=== PATIENT | male | born 1975 | race Two or more races ===

== ENCOUNTER 2022-01-13 21:58 | Inpatient (IN) ==
[2022-01-13 22:33] LABS: Basophils # (auto) 0.02 K/uL (0-0.2); Basophils % (auto) 0.4 %; Eosinophils # (auto) 0.11 K/uL (0-0.5); Hematocrit (blood only) 40.6 % (42-52); Hemoglobin 13.9 g/dL (14.0-18.0); Immature Granulocytes # (auto) 0.01 K/uL (0.00-0.02); Immature Granulocytes % (auto) 0.2 %; Lymphocytes # (auto) 1.57 K/uL (1.2-3.4); Mean Corpuscular Hemoglobin 27.9 pg (25-34); Mean Corpuscular Hgb Conc 34.2 g/dL (32-36); Mean Corpuscular Volume 81.5 fL (80-100); Mean Platelet Volume 9.6 fL (7.4-10.4); Monocytes # (auto) 0.49 K/uL (0.11-0.59); Neutrophils # (auto) 3.22 K/uL (1.4-6.5); Neutrophils % (auto) 59.4 %; Platelet Count 195 K/uL (130-400); RDW Standard Deviation 38.9 fL (36.4-46.3); Red Blood Count 4.98 M/uL (4.7-6.1); White Blood Count 5.42 K/uL (4.8-10.8)
[2022-01-13 22:45] LABS: Partial Thromboplastin Time 27.6 Seconds (21.0-31.0)
[2022-01-13 23:10] LABS: Albumin Globulin Ratio 1.5 (0.9-2); Albumin Level 4.2 gm/dl (3.4-5.0); BUN Creatinine Ratio 14.1 (10-20); Bilirubin,Total 0.7 mg/dl (0.2-1.0); Calcium 9.2 mg/dl (8.5-10.1); Creatinine Clr Calc Pharmacy 115.3 ml/min; Est GFR (Non-African American) 100.1 ml/min; Globulin 2.8 gm/dl (2.5-4.0); Potassium 3.4 mmol/L (3.5-5.1)
[2022-01-13] MEDS ORDERED: NITROGLYCERIN 2% OINTMENT 30GM TUBE EXT ONE (23:29)
[2022-01-13] MEDS ORDERED: ASPIRIN CHEW 324 MG PO STA (23:29)
[2022-01-13] MEDS ORDERED: SODIUM CHLORIDE 0.9% 1000ML 1,000 ML IV SCH (23:30)
[2022-01-13 23:46] LABS: D Dimer 210 ug/L FEU (0-500)
[2022-01-14] MEDS ORDERED: POTASSIUM CHLORIDE CRTAB 20 MEQ TABCR PO STA (01:29)
[2022-01-14] MEDS ORDERED: ONDANSETRON INJ 2 MG/ML 2 ML VIAL IV PRN (02:14)
[2022-01-14] MEDS ORDERED: POLYETHYLENE (MIRALAX) 17 GM PACK PO PRN (02:14)
[2022-01-14] MEDS ORDERED: ACETAMINOPHEN 325 MG TAB PO PRN (02:14)
[2022-01-14] MEDS ORDERED: SODIUM CHLORIDE 0.9% 1000ML 1,000 ML IV SCH (02:14)
[2022-01-14] MEDS ORDERED: NITROGLYCERIN SL 0.4 MG/TAB TAB SL PRN ×2 (02:14→09:52)
[2022-01-14] MEDS ORDERED: METOPROLOL TARTRATE 1 MG/ML VIAL IV PRN (02:14)
[2022-01-14] MEDS ORDERED: HEPARIN SOD (PORCINE) 1000 UNIT/ML IV ONE (02:41)
[2022-01-14] MEDS ORDERED: Heparin IV Adult Wt-Based Standard WITH Bolus Protocol IV SCH (02:44)
[2022-01-14] MEDS: HEPARIN SODIUM/DEXTROSE 25,000 UNITS/500 ML BAG IV SCH (03:45)
[2022-01-14] MEDS ORDERED: HEPARIN IV BOLUS 6,000 UNITS in SYRINGE 0 ML IV ONE ×2 (04:00→15:30)
--- NOTE | 2022-01-14 04:58 | Emergency Department Note ---
History of Present Illness General Chief complaint: Chest Pain Stated complaint: CHEST PAIN, L ARM PAIN Time Seen by Provider: 01/13/22 23:25 History of Present Illness Maximum Pain Intensity: 3 This is a 46-year-old male presenting to the emergency department for evaluation of intermittent chest pain and left arm pain today. The patient considers himself usually healthy taking only medication for blood pressure. He was in [facility] earlier today and took a flight back home to [facility]. He is having some worsening pain and shortness of breath with walking. He has not had symptoms like this in the past. The patient has not taken anything [id number] for discomfort and rates his pain a 3/10. He does describe it as a heaviness that does not radiate from the midsternal area. Home Medications Medication Instructions Recorded Confirmed Type losartan 100 mg tablet 100 mg PO DAILY 01/13/22 01/13/22 History amlodipine 5 mg tablet 5 mg PO DAILY 01/14/22 01/14/22 History Allergies Allergy/AdvReac Type Severity Reaction Status Date / Time No Known Allergies Allergy Verified 01/13/22 23:38 Past Med/Surg History Medical History Hypertension Surgical History No significant past surgical history Social History Smoking Status: Never smoker Hx Alcohol Use: No Hx Substance Use: No Preferred Language: Andorran Communication Ability: Effective Answering Service Operator Required: No Beliefs That Will Affect Care: None Current Living Situation: Spouse and Family Feels Safe at Home: Yes Safety Concerns: Feels Safe At This Time Assistive Devices: None Review of Systems A total of 10 systems reviewed and were otherwise negative Physical Exam Vital Signs Vital Signs - 24 hr 01/13/22 22:04 01/13/22 23:32 01/14/22 00:00 Temperature 36.4 C L Temperature Source Temporal Artery Scan Pulse Rate 84 58 L 55 L Pulse Rate from SpO2 Sensor 58 L Respiratory Rate 18 22 21 Blood Pressure 174/106 H 157/92 H Blood Pressure Mean 128 113 Pulse Oximetry 95 99 Sepsis Recent Fever Within 48 Hours No Sepsis New/Unexplained Change in Mental Status N/A Sepsis Action Taken by Nursing No Action Required 01/14/22 00:30 01/14/22 01:00 Temperature Temperature Source Pulse Rate 47 L 53 L Pulse Rate from SpO2 Sensor 47 L 54 L Respiratory Rate 12 13 Blood Pressure 126/84 Blood Pressure Mean 98 Pulse Oximetry 96 94 Sepsis Recent Fever Within 48 Hours Sepsis New/Unexplained Change in Mental Status Sepsis Action Taken by Nursing VITALS: Vitals are noted on the nurse's note and reviewed by myself. Vital signs stable. GENERAL: Well-developed, well-nourished, male, who is in no acute distress and resting comfortably. Patient is cooperative with the examination. HEAD: Normocephalic atraumatic. EARS: External ear normal. External auditory canals clear, tympanic membranes pearly bynum without erythema or effusion bilaterally. EYES: Pupils equal round and reactive to light and accommodation. Conjunctivae without injection, sclerae without icterus. Extraocular movements intact. NOSE: Patent, turbinates without inflammation or discharge. MOUTH: Mucous membranes moist. Tonsils are not enlarged. Pharynx without erythema, blood, or exudate. Uvula midline. Airway patent. NECK: Supple without nuchal rigidity. No lymphadenopathy. No thyromegaly. Cervical spine is nontender. HEART: Regular rate and rhythm without murmurs gallops or rubs. LUNGS: Clear to auscultation bilaterally without wheezes, rales or rhonchi. No retractions or accessory muscle use. ABDOMEN: Positive normal bowel sounds x 4. Soft, nontender, without masses or organomegaly. No guarding or rebound tenderness. MUSCULOSKELETAL: No muscle atrophy, erythema, or edema noted. Full range of motion in all extremities Course Administered Medications Sodium Chloride (Nss 1000ml) 1,000 mls @ 75 mls/hr IV .[id number] [facility] Stop: 01/14/22 15:33 Last Admin: 01/14/22 03:25 Dose: 75 mls/hr Documented by: [id number] Heparin Sodium/Dextrose (Heparin Sodium/Dextrose) 25,000 units in 500 mls @ 29 mls/hr IV .[id number] [facility]; Protocol Stop: 02/13/22 02:44 Last Admin: 01/14/22 03:45 Dose: 1,450 units/hr, 29 mls/hr Documented by: [id number] Cosigned by: [id number] Discontinued Medications Aspirin (Aspirin Chew 324 Mg) 324 mg PO NOW STA Stop: 01/13/22 23:30 Last Admin: 01/13/22 23:38 Dose: 324 mg Documented by: [id number] Sodium Chloride (Nss 1000ml) 1,000 mls @ 999 mls/hr IV .[id number] [facility] Stop: 01/14/22 00:30 Last Infusion: 01/14/22 00:42 Dose: 0 mls/hr Documented by: [id number] Admin: 01/13/22 23:38 Dose: 999 mls/hr Documented by: [id number] Heparin Sodium (Porcine) 6,000 (units/ Syringe) 6 mls @ 10 mls/min IV 0400 ONE Stop: 01/14/22 04:01 Last Admin: 01/14/22 04:02 Dose: 10 mls/min Documented by: [id number] Cosigned by: [id number] Nitroglycerin (Nitroglycerin 2% Ointment 30gm Tube) 1 inch EXT NOW ONE Stop: 01/13/22 23:30 Last Admin: 01/13/22 23:38 Dose: 1 inch Documented by: [id number] Potassium Chloride (Potassium Chloride Crtab 20 Meq Tabcr) 40 meq PO NOW STA Stop: 01/14/22 01:30 Last Admin: 01/14/22 03:24 Dose: 40 meq Documented by: [id number] Medical Decision Making Differential Diagnosis Differential diagnosis includes, but is not limited to: Myocardial infarction, dysrhythmia, pericarditis, pneumothorax, aortic aneurysm/dissection, DVT/PE, anxiety, GERD, PUD, electrolyte imbalance, thyroid disorder, pneumonia, bronchitis, pancreatitis, and others Laboratory Data Result diagrams: 01/13/22 22:20 01/13/22 22:20 Lab Results 01/13/22 01/13/22 01/13/22 Range/Units 22:20 22:20 22:20 WBC 5.42 (4.8-10.8) K/uL RBC 4.98 (4.7-6.1) M/uL Hgb 13.9 L (14.0-18.0) g/dL Hct 40.6 L (42-52) % MCV 81.5 (80-100) fL MCH 27.9 (25-34) pg MCHC 34.2 (32-36) g/dL RDW Std Deviation 38.9 (36.4-46.3) fL RDW Coeff of Storm 13.0 (11.5-14.5) % Plt Count 195 (130-400) K/uL MPV 9.6 (7.4-10.4) fL Immature Gran % (Auto) 0.2 % Neut % (Auto) 59.4 % Lymph % (Auto) 29.0 % [place] % (Auto) 9.0 % Eos % (Auto) 2.0 % Baso % (Auto) 0.4 % Neut # (Auto) 3.22 (1.4-6.5) K/uL Lymph # (Auto) 1.57 (1.2-3.4) K/uL [place] # (Auto) 0.49 (0.11-0.59) K/uL Eos # (Auto) 0.11 (0-0.5) K/uL Baso # (Auto) 0.02 (0-0.2) K/uL Immature Gran # (Auto) 0.01 (0.00-0.02) K/uL PT 11.0 (9.0-12.0) Seconds INR 1.0 (0.9-1.1) APTT 27.6 (21.0-31.0) Seconds PTT Ratio 1.0 D-Dimer (0-500) ug/L FEU Sodium (136-145) mmol/L Potassium (3.5-5.1) mmol/L Chloride (98-107) mmol/L Carbon Dioxide (21-32) mmol/L Anion Gap (3-11) BUN (6-23) mg/dl Creatinine (0.6-1.4) mg/dl Est Cr Clr Drug Dosing ml/min Est GFR ( Amer) ml/min Est GFR (Non-Af Amer) ml/min BUN/Creatinine Ratio (10-20) Glucose (70-99(Fasting)) mg/dl Calcium (8.5-10.1) mg/dl Total Bilirubin (0.2-1.0) mg/dl AST (13-39) U/L ALT (7-52) U/L Alkaline Phosphatase (34-104) U/L Troponin I High Sens 134.1 H* (0-20) pg/ml Total Protein (6.0-8.3) gm/dl Albumin (3.4-5.0) gm/dl Globulin (2.5-4.0) gm/dl Albumin/Globulin Ratio (0.9-2) SARS-CoV-2, RNA, NAAT (NEGATIVE) 01/13/22 01/13/22 01/14/22 Range/Units 22:20 22:20 00:12 WBC (4.8-10.8) K/uL RBC (4.7-6.1) M/uL Hgb (14.0-18.0) g/dL Hct (42-52) % MCV (80-100) fL MCH (25-34) pg MCHC (32-36) g/dL RDW Std Deviation (36.4-46.3) fL RDW Coeff of Storm (11.5-14.5) % Plt Count (130-400) K/uL MPV (7.4-10.4) fL Immature Gran % (Auto) % Neut % (Auto) % Lymph % (Auto) % [place] % (Auto) % Eos % (Auto) % Baso % (Auto) % Neut # (Auto) (1.4-6.5) K/uL Lymph # (Auto) (1.2-3.4) K/uL [place] # (Auto) (0.11-0.59) K/uL Eos # (Auto) (0-0.5) K/uL Baso # (Auto) (0-0.2) K/uL Immature Gran # (Auto) (0.00-0.02) K/uL PT (9.0-12.0) Seconds INR (0.9-1.1) APTT (21.0-31.0) Seconds PTT Ratio D-Dimer 210 (0-500) ug/L FEU Sodium 139 (136-145) mmol/L Potassium 3.4 L (3.5-5.1) mmol/L Chloride 104 (98-107) mmol/L Carbon Dioxide 28 (21-32) mmol/L Anion Gap 7 (3-11) BUN 13 (6-23) mg/dl Creatinine 0.92 (0.6-1.4) mg/dl Est Cr Clr Drug Dosing 115.3 ml/min Est GFR ( Amer) 116.0 ml/min Est GFR (Non-Af Amer) 100.1 ml/min BUN/Creatinine Ratio 14.1 (10-20) Glucose 91 (70-99(Fasting)) mg/dl Calcium 9.2 (8.5-10.1) mg/dl Total Bilirubin 0.7 (0.2-1.0) mg/dl AST 17 (13-39) U/L ALT 16 (7-52) U/L Alkaline Phosphatase 66 (34-104) U/L Troponin I High Sens (0-20) pg/ml Total Protein 7.0 (6.0-8.3) gm/dl Albumin 4.2 (3.4-5.0) gm/dl Globulin 2.8 (2.5-4.0) gm/dl Albumin/Globulin Ratio 1.5 (0.9-2) SARS-CoV-2, RNA, NAAT NEGATIVE (NEGATIVE) 01/14/22 Range/Units 01:20 WBC (4.8-10.8) K/uL RBC (4.7-6.1) M/uL Hgb (14.0-18.0) g/dL Hct (42-52) % MCV (80-100) fL MCH (25-34) pg MCHC (32-36) g/dL RDW Std Deviation (36.4-46.3) fL RDW Coeff of Storm (11.5-14.5) % Plt Count (130-400) K/uL MPV (7.4-10.4) fL Immature Gran % (Auto) % Neut % (Auto) % Lymph % (Auto) % [place] % (Auto) % Eos % (Auto) % Baso % (Auto) % Neut # (Auto) (1.4-6.5) K/uL Lymph # (Auto) (1.2-3.4) K/uL [place] # (Auto) (0.11-0.59) K/uL Eos # (Auto) (0-0.5) K/uL Baso # (Auto) (0-0.2) K/uL Immature Gran # (Auto) (0.00-0.02) K/uL PT (9.0-12.0) Seconds INR (0.9-1.1) APTT (21.0-31.0) Seconds PTT Ratio D-Dimer (0-500) ug/L FEU Sodium (136-145) mmol/L Potassium (3.5-5.1) mmol/L Chloride (98-107) mmol/L Carbon Dioxide (21-32) mmol/L Anion Gap (3-11) BUN (6-23) mg/dl Creatinine (0.6-1.4) mg/dl Est Cr Clr Drug Dosing ml/min Est GFR ( Amer) ml/min Est GFR (Non-Af Amer) ml/min BUN/Creatinine Ratio (10-20) Glucose (70-99(Fasting)) mg/dl Calcium (8.5-10.1) mg/dl Total Bilirubin (0.2-1.0) mg/dl AST (13-39) U/L ALT (7-52) U/L Alkaline Phosphatase (34-104) U/L Troponin I High Sens 157.8 H* (0-20) pg/ml Total Protein (6.0-8.3) gm/dl Albumin (3.4-5.0) gm/dl Globulin (2.5-4.0) gm/dl Albumin/Globulin Ratio (0.9-2) SARS-CoV-2, RNA, NAAT (NEGATIVE) ECG Data Attestation: I personally reviewed and interpreted this ECG as follows: Indication: + chest pain Additional Comments: Sinus bradycardia @[address] elevation Incomplete right bundle branch block No previous ECGs available MDM Narrative Physical exam and history were performed. Nursing notes, EMR, and Medication List were personally reviewed. Patient appears to have chest pain symptoms that seem to worsen with exertion today. The patient presents to the ER during a period of high ER volume and acuity. Nursing protocol orders have been initiated and IV access has been established and labs obtained. The patient was given aspirin and Nitropaste. The patient's blood work is as above and was reviewed. He does not have a significantly elevated white blood cell count, gross anemia, bandemia, or significant electrolyte imbalance. His high sensitive troponin is POSITIVE at 120. EKG was performed and does not show acute ST elevation. An order was placed for continuous cardiac monitoring. The monitor shows a rate of 62 with normal sinus rhythm. Overall the patient does not appear well for discharge home. The case was discussed with the on-call [facility] who will initiate heparin. Please see their dictation for further patient course, plan, and disposition. The chart was completed utilizing [employer] Speech Voice Recognition Software. Grammatical errors, random word insertions, pronoun errors, and incomplete s entences are an occasional consequence of this system due to software limitations, ambient noise, and hardware issues. Any formal questions or concerns about the content, text, or information contained within the body of this dictation should be directly addressed to the provider for clarification. . Impression & Plan Atypical chest pain, Elevated troponin Discharge Plan Visit Data Chief Complaint: Chest Pain Stated Complaint: CHEST PAIN, L ARM PAIN ED Provider: Cassandra York ED Midlevel Provider: Clint Chance Discharge Problem: Atypical chest pain, Elevated troponin Patient Disposition: Being Evaluated by Hospitalist
[2022-01-14] MEDS: NITROGLYCERIN 2% OINTMENT 30GM TUBE EXT SCH ×4 (05:52→23:16)
--- NOTE | 2022-01-14 06:33 | History and Physical Report ---
DATE OF ADMISSION: 01/14/2022. CHIEF COMPLAINT: Chest pain. HISTORY OF PRESENT ILLNESS: A 46-year-old male with past medical history significant for prediabetes, history of hypokalemia, hypertension, history of low HDL, presents with chest pain. The patient says he flew from [place] yesterday morning. Since then, he is having chest discomfort in the middle of the chest, no radiation. Pressure, sharp kind of pain and the pain is more when he is ambulating 6/10 in ; when he is resting, it is 3/10 in severity. Denies any other complaints. No shortness of breath, no nausea, no headache, no dizziness, no sweating. Currently resting comfortably. The patient was given nitros and aspirin in the ER. Currently, pain is resolved. Denies any blurred visions, no earache, no runny nose, no sore throat, no cough, no fevers. No difficulty swallowing. No abdominal pain. Normal bowel and bladder movements. Before this episode he was ambulating fine without any complaints. ALLERGIES: No known drug allergies. PAST MEDICAL HISTORY: As mentioned above. PAST SURGICAL HISTORY: Knee arthroscopy on the left side. MEDICATIONS: Amlodipine 5 mg p.o. daily, losartan 100 mg p.o. daily. FAMILY HISTORY: Significant for father has prediabetes. SOCIAL HISTORY: , no smoking, no alcohol, no drug use. REVIEW OF SYSTEMS: As per HPI. Rest of review of systems is negative. PHYSICAL EXAMINATION: GENERAL: The patient is of moderate build, not in acute distress. VITAL SIGNS: Temperature 36.4, pulse 84, respiratory rate 18, blood pressure 174/106, oxygen 95% on room air. HEENT: Pupils equal, round and reactive to light. Oral mucosa moist. NECK: No JVD, no neck masses. CARDIOVASCULAR: S1 and S2 heard. Regular rate and rhythm. No murmur, no gallop. RESPIRATORY SYSTEM: Normal AP diameter. No accessory muscle use. No wheezing, no crackles. ABDOMEN: Soft, bowel sounds present, nontender, no distention. CENTRAL NERVOUS SYSTEM: Cranial nerves II-XII grossly intact, nonfocal. EXTREMITIES: No edema, no erythema. LABORATORY DATA: WBC 5.4, hemoglobin 13.9, hematocrit 40.6, platelets 195. PT 11, INR 1, APTT 27.6. D-dimer 210. Sodium 139, potassium 3.4, chloride 104, bicarb 28, BUN 13, creatinine 0.9, serum glucose 91, calcium 9.2, total bilirubin 0.7, AST 17, ALT 16, alkaline phosphatase 66. Troponin I high sensitivity 134. SARS-CoV-2 rapid test negative. IMAGING DATA: Chest x-ray, no acute findings. EKG: Sinus bradycardia at a rate of 53, incomplete right bundle-branch block, no acute ST changes seen. ASSESSMENT AND PLAN: This is a 46-year-old male who presents with chest pain. 1. Chest pain: Pain is more on exertion. History of hypertension, prediabetes, and age are risk factors. His troponin high sensitivity is elevated at 134, possible non-ST elevated [place]. Received aspirin and nitropatch in ER.. Continue with aspirin. Follow lipid profile. Follow the serial enzymes.Started on IV heparin. Echo, n.p.o., gentle fluids, and consult cardiology in the a.m. Closely monitor in the tele floor. 2. Hypertension: Continues his amlodipine and losartan. and IV Lopressor p.r.n. If gets elevated will start on nitro paste Will monitor the blood pressure. 3. Deep venous thrombosis prophylaxis: IV heparin. 4. Prediabetes: Follow HbA1c levels. DISPOSITION: Closely monitor in tele floor. Level 1 full code. Expect to discharge home and follow with family doctor. Job ID: [id number] [facility]
--- NOTE | 2022-01-14 08:01 | XRay Report ---
XR chest 1V portable HISTORY: Shortness of breath. Atypical Chest Pain COMPARISON: None. FINDINGS: The lungs are clear. Cardiac silhouette is normal in size. No pleural effusions. No pneumot horax. IMPRESSION: No acute process. ACT 112: Negative or not required by law. Electronically signed by: Sivakumar Morales M.D. 01/14/2022 7:59 AM
[2022-01-14 08:24] LABS: Basophils # (auto) 0.01 K/uL (0-0.2); Basophils % (auto) 0.1 %; Eosinophils # (auto) 0.08 K/uL (0-0.5); Eosinophils % (auto) 1.1 %; Hematocrit (blood only) 38.5 % (42-52); Hemoglobin 12.9 g/dL (14.0-18.0); Immature Granulocytes # (auto) 0.01 K/uL (0.00-0.02); Immature Granulocytes % (auto) 0.1 %; Lymphocytes # (auto) 1.11 K/uL (1.2-3.4); Lymphocytes % (auto) 15.9 %; Mean Corpuscular Hemoglobin 27.5 pg (25-34); Mean Corpuscular Hgb Conc 33.5 g/dL (32-36); Mean Corpuscular Volume 82.1 fL (80-100); Mean Platelet Volume 9.4 fL (7.4-10.4); Monocytes # (auto) 0.35 K/uL (0.11-0.59); Neutrophils # (auto) 5.44 K/uL (1.4-6.5); Neutrophils % (auto) 77.8 %; Platelet Count 185 K/uL (130-400); RDW Coefficient of Variation 13.1 % (11.5-14.5); RDW Standard Deviation 39.6 fL (36.4-46.3); Red Blood Count 4.69 M/uL (4.7-6.1)
--- NOTE | 2022-01-14 08:29 | Cardiology Consultation ---
Date of Consultation January 14, 2022 Assessment & Plan (1) Non-ST elevation (NSTEMI) myocardial infarction: (2) Hypertension: 46-year-old patient presents to the ER with chest discomfort and elevated troponin suggestive of NSTEMI. IV anticoagulation with heparin appropriately initiated overnight. Currently pain-free. Recommend coronary angiography with left heart catheterization for further evaluation. Risk, benefits, terms discussed. Patient agreeable. Add high intensity statin therapy. Patient is a drug-eluting stent candidate. History of Present Illness Reason for Consultation: NSTEMi Requesting Physician: Gayathri Clarke Attending Physician: Patrica Hall MD History of Present Illness 86-year-old patient presented emergency department chest discomfort. Discomfort began yesterday at rest described as a sharp pain. Discomfort exacerbated with exertion and relieved with rest. He came to the ER for further evaluation. Initial HS troponin mildly elevated with a increase on 2-hour follow-up. Currently patient is pain-free. Denies any history of coronary disease, congestive heart failure, or rheumatic fever as a child. Cardiovascular risk factors include hypertension and prediabetes. Treated with aspirin and topical nitrates in the ER. Preliminary review of 2D transthoracic echocardiogram demonstrates no regional wall motion abnormalities. Allergies Allergy/AdvReac Type Severity Reaction Status Date / Time No Known Allergies Allergy Verified 01/13/22 23:38 Home Medications Medication Instructions Recorded Confirmed Type losartan 100 mg tablet 100 mg PO DAILY 01/13/22 01/13/22 History amlodipine 5 mg tablet 5 mg PO DAILY 01/14/22 01/14/22 History Patient History Medical History Hypertension Surgical History No significant past surgical history Social History Smoking Status: Never smoker Hx Alcohol Use: No Hx Substance Use: No Preferred Language: Afghan Communication Ability: Effective Manager Sap Required: No Beliefs That Will Affect Care: None Current Living Situation: Spouse and Family Feels Safe at Home: Yes Safety Concerns: Feels Safe At This Time Assistive Devices: None Review of Systems Review of Systems: All systems reviewed & are unremarkable except as noted in Subjective Physical Exam Constitutional: well developed and well nourished; no acute distress Respiratory: normal respiratory effort; no respiratory distress, no labored breathing and no retractions Cardiovascular: Rate/Rhythm: regular rate and regular rhythm Heart Sounds: normal S1 and normal S2; no murmur Vessels: femoral pulses present and radial pulses present; no JVD and no carotid bruit Extremities: no edema Gastrointestinal (Abdomen): Inspection/Auscultation: abdomen normal to inspection and normal bowel sounds; abdomen not distended Neurologic: CN's II-XI intact bilaterally and moves all extremities; no focal motor deficits Psychiatric: A+Ox3, euthymic affect Results & Data ([facility]) Vital Signs (Past 12 Hours) Vital Signs Temp Pulse Pulse Resp BP BP BP 01/14/22 07:50 66 01/14/22 07:03 36.8 C 62 18 127/78 01/14/22 05:38 73 128/75 01/14/22 04:23 62 01/14/22 03:55 36.5 C 58 L 18 128/78 01/14/22 02:20 36.5 C 69 20 145/82 H 01/14/22 01:30 01/14/22 01:00 53 L 13 126/84 01/14/22 00:30 47 L 12 01/14/22 00:00 55 L 21 157/92 H 01/13/22 23:32 58 L 22 01/13/22 22:04 36.4 C L 84 18 174/106 H Pulse Ox 01/14/22 07:50 01/14/22 07:03 95 01/14/22 05:38 01/14/22 04:23 01/14/22 03:55 94 01/14/22 02:20 95 01/14/22 01:30 97 01/14/22 01:00 94 01/14/22 00:30 96 01/14/22 00:00 01/13/22 23:32 99 01/13/22 22:04 95
--- NOTE | 2022-01-14 08:36 | Pre Anesthesia Assessment ---
Date of Service January 14, 2022 Pre Sedation Assessment Vital Signs Temp Pulse Pulse Resp BP BP BP 01/14/22 07:50 66 01/14/22 07:03 36.8 C 62 18 127/78 01/14/22 05:38 73 128/75 01/14/22 04:23 62 01/14/22 03:55 36.5 C 58 L 18 128/78 01/14/22 02:20 36.5 C 69 20 145/82 H 01/14/22 01:30 01/14/22 01:00 53 L 13 126/84 01/14/22 00:30 47 L 12 01/14/22 00:00 55 L 21 157/92 H 01/13/22 23:32 58 L 22 01/13/22 22:04 36.4 C L 84 18 174/106 H Pulse Ox 01/14/22 07:50 01/14/22 07:03 95 01/14/22 05:38 01/14/22 04:23 01/14/22 03:55 94 01/14/22 02:20 95 01/14/22 01:30 97 01/14/22 01:00 94 01/14/22 00:30 96 01/14/22 00:00 01/13/22 23:32 99 01/13/22 22:04 95 Cardiovascular RRR, no murmur, no edema + femoral pulses present and + radial pulses present; no JVD and no carotid bruit no edema Respiratory normal respiratory effort, lungs clear to auscultation Pre-Sedation Airway Assessment Smoking Status: Never smoker ASA: ASA4 NPO Status Date of Last Intake of Fluids: 01/13/22 Date of Last Intake of Solid Food: 01/13/22 Procedure Planning Contraindications for Sedation: none Current Medications Reviewed: Yes Notes The planned sedation has been discussed with the patient. Informed Consent was obtained. I have identified the patient, determined the appropriateness of sedation and have assessed the patient immediately prior to the procedure. All medicine(s) and interventions are by my order.
[2022-01-14] MEDS ORDERED: HEPARIN (PORCINE) 1000 UNIT/ML 10 ML (CATH LAB USE ONLY) ONE (09:03)
[2022-01-14] MEDS ORDERED: MIDAZOLAM HCL 1 MG/ML 2ML VIAL ONE (09:03)
[2022-01-14] MEDS ORDERED: fentaNYL citrate 100 MCG/2 ML VIAL ONE (09:03)
[2022-01-14] MEDS ORDERED: niCARdipine HCL INJ 2.5 MG/ML 10 ML AMP ONE (09:03)
[2022-01-14] MEDS ORDERED: NITROGLYCERIN/D5W 100MCG/ML 20ML SYR ONE (09:04)
[2022-01-14 09:14] LABS: BUN Creatinine Ratio 11.1 (10-20); Calcium 8.6 mg/dl (8.5-10.1); Chol HDL Ratio 3.9 (0-5); Est GFR (African American) 106.2 ml/min; Est GFR (Non-African American) 91.6 ml/min; Potassium 3.6 mmol/L (3.5-5.1); Troponin I High Sensitivity 120.9 pg/ml (0-20)
--- NOTE | 2022-01-14 09:36 | Post Anesthesia Assessment ---
Date of Service January 14, 2022 Post Sedation Assessment Vital Signs Temp Pulse Pulse Resp BP BP BP 01/14/22 07:50 66 01/14/22 07:03 36.8 C 62 18 127/78 01/14/22 05:38 73 128/75 01/14/22 04:23 62 01/14/22 03:55 36.5 C 58 L 18 128/78 01/14/22 02:20 36.5 C 69 20 145/82 H 01/14/22 01:30 01/14/22 01:00 53 L 13 126/84 01/14/22 00:30 47 L 12 01/14/22 00:00 55 L 21 157/92 H 01/13/22 23:32 58 L 22 01/13/22 22:04 36.4 C L 84 18 174/106 H Pulse Ox 01/14/22 07:50 01/14/22 07:03 95 01/14/22 05:38 01/14/22 04:23 01/14/22 03:55 94 01/14/22 02:20 95 01/14/22 01:30 97 01/14/22 01:00 94 01/14/22 00:30 96 01/14/22 00:00 01/13/22 23:32 99 01/13/22 22:04 95 Recovery Score Activity: Moves 4 extremities Respiration: Deep Breath/Cough Consciousness: Arouseable (by name) Oxygen Saturation: > 92% On Room Air Discharge Sedation Level of Care: Phase I Post Sedation Plan On clinical assessment, the patient appears to have tolerated the sedation without complications. Patient is recovering as anticipated. Patient will continue to be monitored by nursing and may be discharged when sedation discharge criteria are met per below protocol. Upon Completions of procedure up to 15 minutes continue every 5 minute vital signs and the P.A.R. score; then discharge to a Phase I or Fast Track to Phase II per the following guidelines: * Discharge Patient to appropriate Phase II area if PAR is 8 or greater or return to pre- procedure baseline. The post - procedure orders will be as directed. * If PAR score is less than 8 or not return to pre-procedure baseline then patient will follow Phase I monitoring till PAR is reached for Phase II. The Phase I may be done in procedure room or may call to secure a Phase I area. * If naloxone or flumazenil are used for reversal, hold in Phase I for continued monitoring from when last reversal dose was given for a minimum of 60 minutes or longer pending the nurse and/or physician discretion of patient condition before discharge to Phase II. Please call the Sedation Physician to re-evaluate and complete post-note for discharge to Phase II area. Do NOT discharge from procedure sedation or Phase 1 until post- sedation evaluation note is complete by procedure /sedation MD Sedation Discharge Instructions to be given to the patient at discharge to home.
--- NOTE | 2022-01-14 09:38 | Cardiac Catheterization ---
Cardiac Cath Procedure Full Procedure Date January 14, 2022 Pre-Procedure Diagnosis Pre-Procedure Diagnosis: Non STEMI AUC Score AUC Score: 8 Post-Procedure Diagnosis Post-Procedure Diagnosis: Severe CAD and Normal Intracardiac Pressures Procedure(s) Performed Procedure(s) Performed: Coronary Angiography and Left Heart Cath Agricultural And Forestry Supervisor Fam Arechiga DO Lead Burner Helper(s) [place] SENIOR COUNSEL Estimated Blood Loss Estimated Blood Loss: 3cc Medication(s) Medication(s): Fentanyl, Heparin, Lidocaine 1%, Nicardipine, Nitroglycerin and Versed Summary of Findings 99% distal diagonal branch vessel stenosis not amenable to PCI due to small caliber vessel. Otherwise, mild nonobstructive CAD. Hemodynamics Rest Ao:: 124/70/101 Final Ao: 128/71/95 LV: 130/0/11 Recommendations Recommendations: Medical Therapy and/or Counseling (48 hours of intravenous heparin, dual antiplatelet therapy for 1 year, high intensity statin therapy, beta-rafia if tolerated) Radiation Exposure (mGy) 846 Contrast (mls) 55 Fluids (cc crystalloids) Fluids (cc crystalloids): 65 Drains Drains: N/A Anesthesia Moderate Sedation. Start 0908. End 0939. Sedation monitor: Tabby HOOVER Procedural Complication(s) None Disposition PCU I attest to the content of the Intraoperative Record and any orders documented therein. Any exceptions are noted below. 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 Troponins elevated suggestive of NSTEMI. Echocardiogram reveals normal LV systolic function without regional wall motion abnormality. CAD Presenation: Non STEMI Heart Failure: No Cardiogenic Shock within 24 Hours: No Cardiac Arrest within 24 Hours: No Imaging Studies Past 6 Months: No Stress Studies Past 6 Months: No STEMI OR Non-STEMI Symptom Onset Date: 01/13/22 Symptom Onset Time: 18:00 Thrombolytics: No Coronary Anatomy Dominant: Right Left Main (% Stenosis): Normal LAD (% Stenosis): Proximal (20%) D1 (% Stenosis): Distal (99% distal small, 2 mm sub-branch.) D2 (% Stenosis): Distal (Luminal irregularities, 10%) Circumflex (% Stenosis): Normal OM1 (% Stenosis): Normal (Small vessel) L PL1 (% Stenosis): Normal (Small vessel) RCA (% Stenosis): Mid (10%) R PDA (% Stenosis): Normal R PL1 (% Stenosis): Normal Ramus (% Stenosis): Mid (Large vessel, luminal irregularities, 10%) and Distal (Luminal irregularities, 10%) Diagnostic Physicians Name: Fam Arechiga DO Closure Device Percutaneous Entry Location: Radial Closure Device: Radial Band Recommendations: Medical Therapy and/or Counseling (48 hours of intravenous heparin, dual antiplatelet therapy for 1 year, high intensity statin therapy, beta-rafia if tolerated) Intraprocedure Events Significant Disection: No Perforation: No
[2022-01-14 09:56] LABS: Estimated Average Glucose 111 mg/dl; Hemoglobin A1C 5.5 % (4.5-5.6)
[2022-01-14] MEDS ORDERED: CLOPIDOGREL BISULFATE 300 MG TAB PO STA (10:06)
[2022-01-14] MEDS: amLODIPine BESYLATE 5 MG TAB PO SCH (10:19)
[2022-01-14] MEDS: LOSARTAN POTASSIUM 50 MG TAB PO SCH (10:19)
[2022-01-14] MEDS: ASPIRIN 81 MG ECTAB PO SCH (10:19)
[2022-01-14] MEDS: ATORVASTATIN 40 MG TAB PO SCH (11:15)
[2022-01-14 12:45] LABS: Partial Thromboplastin Ratio 2.3
[2022-01-14 12:46] LABS: Partial Thromboplastin Time 64.1 Seconds (21.0-31.0)
--- NOTE | 2022-01-14 13:32 | Electrocardiogram Report ---
Test Reason : Blood Pressure : / mmHG Vent. Rate : 053 BPM Atrial Rate : 053 BPM P-R Int : 160 ms QRS Dur : 110 ms QT Int : 470 ms P-R-T Axes : 053 -09 022 degrees QTc Int : 441 ms Sinus bradycardia RSR' or QR pattern in V1 suggests right ventricular conduction delay Minimal voltage criteria for LVH, may be normal variant Borderline ECG No previous ECGs available Confirmed by Von Bardales ([id number]) on 01/14/2022 1:32:01 PM Referred By: REFERRED SELF Confirmed By:Von Bardales
--- NOTE | 2022-01-14 13:48 | Electrocardiogram Report ---
Test Reason : Blood Pressure : / mmHG Vent. Rate : 063 BPM Atrial Rate : 063 BPM P-R Int : 158 ms QRS Dur : 096 ms QT Int : 450 ms P-R-T Axes : 057 -10 044 degrees QTc Int : 460 ms Normal sinus rhythm Possible Left atrial enlargement RSR' or QR pattern in V1 suggests right ventricular conduction delay Borderline ECG When compared with ECG of 13-JAN-2022 22:11, (unconfirmed) No significant change was found Confirmed by Von Bardales ([id number]) on 01/14/2022 1:48:33 PM Referred By: REFERRED SELF Confirmed By:Von Bardales
[2022-01-14 14:46] LABS: Partial Thromboplastin Time 27.9 Seconds (21.0-31.0)
--- NOTE | 2022-01-14 17:30 | Hospitalist Progress Note ---
Date of Service January 14, 2022 Assessment & Plan (1) Non-ST elevation (NSTEMI) myocardial infarction: Plan: Presented with chest pain on exertion History of hypertension, prediabetes Noted to have increasing level of troponins without any significant EKG changes Status post cardiac cath and noted to have:99% distal diagonal branch vessel stenosis not amenable to PCI due to small caliber vessel. Otherwise, mild nonobstructive CAD. Recommendations: Medical Therapy and/or Counseling (48 hours of intravenous heparin, dual antiplatelet therapy for 1 year, high intensity statin therapy, beta-rafia if tolerated) Remains free of symptoms following cardiac cath Likely home following completion of 48 hours of intravenous heparin (2) Hypertension: Plan: Noted to have high blood pressure on admission Remains stable as of this morning DVT prophylaxis Intravenous heparin CODE STATUS Full Admission and Anticipated Discharge Date Admission Date: January 14, 2022 Subjective 01/14/2022 The patient was seen and examined in telemetry unit Is admitted with chest pain and was noted to have increasing level of troponin He underwent cardiac cath and noted to have small vessel occlusion with normal coronaries Clinically stable with continuation of the medical management as per the breakfast and room attendant Denies any significant symptoms today Review of Systems Review of Systems: All systems reviewed and are unremarkable except as noted below Cardiovascular: Additional Comments: No chest pain Physical Exam Physical Exam: Lying in bed comfortably Constitutional: well developed, well nourished and + obese; not ill appearing Eyes: PERRL, conjunctivae normal, anicteric sclerae ENMT: external ear and nose normal, oropharynx normal Neck: trachea midline, no thyromegaly Respiratory: no respiratory distress Auscultation: lungs clear to auscultation bilaterally and + diminished lung sounds Cardiovascular: Rate/Rhythm: regular rate and regular rhythm; not tachycardic Heart Sounds: normal S1 and normal S2; no murmur Extremities: no edema Gastrointestinal (Abdomen): Inspection/Auscultation: normal bowel sounds; abdomen not distended Percussion/Palpation: + splenomegaly; abdomen nontender Musculoskeletal: No acute arthritis in any joint Neurologic: Alert, awake and oriented x3. No focal sensory or no motor deficit appreciated Psychiatric: A+Ox3, euthymic affect Lymphatic: no cervical or axillary lymphadenopathy Results & Data Results & Data ([facility]) Vital Signs (Past 12 Hours) Vital Signs Temp Pulse Pulse Resp BP BP Pulse Ox 01/14/22 16:05 93 H 01/14/22 15:31 65 14 137/82 95 01/14/22 14:07 93 H 14 97/65 L 97 01/14/22 13:07 88 14 140/88 01/14/22 12:07 74 14 142/90 H 98 01/14/22 11:42 76 14 145/89 H 97 01/14/22 11:07 74 16 136/90 98 01/14/22 10:47 67 01/14/22 10:37 54 L 14 133/79 99 01/14/22 10:07 81 14 143/83 H 99 01/14/22 10:01 55 L 16 124/73 97 01/14/22 09:52 36.5 C 54 L 14 153/80 H 97 01/14/22 09:45 54 L 16 126/76 97 01/14/22 07:50 66 01/14/22 07:03 36.8 C 62 18 127/78 95 01/14/22 05:38 73 128/75 Laboratory Results Short CBC 01/13/22 01/14/22 Range/Units 22:20 08:09 WBC 5.42 7.00 (4.8-10.8) K/uL Hgb 13.9 L 12.9 L (14.0-18.0) g/dL Hct 40.6 L 38.5 L (42-52) % Plt Count 195 185 (130-400) K/uL BMP 01/13/22 01/14/22 22:20 08:09 Sodium 139 140 Potassium 3.4 L 3.6 Chloride 104 108 H Carbon Dioxide 28 27 BUN 13 11 Creatinine 0.92 0.99 Glucose 91 111 H Calcium 9.2 8.6 Liver Function 01/13/22 Range/Units 22:20 Total Bilirubin 0.7 (0.2-1.0) mg/dl AST 17 (13-39) U/L ALT 16 (7-52) U/L Alkaline Phosphatase 66 (34-104) U/L Albumin 4.2 (3.4-5.0) gm/dl Medications Administered Current Inpatient Medications Acetaminophen (Acetaminophen 325 Mg Tab) 650 mg PO Q4H PRN PRN Reason: Pain or Fever Stop: 02/13/22 02:13 Amlodipine Besylate (Amlodipine Besylate 5 Mg Tab) 5 mg PO DAILY [facility] Stop: 02/13/22 08:59 Last Admin: 01/14/22 10:19 Dose: 5 mg Documented by: Aspirin (Aspirin 81 Mg Ectab) 81 mg PO [facility] Stop: 02/13/22 08:59 Last Admin: 01/14/22 10:19 Dose: 81 mg Documented by: Atorvastatin Calcium (Atorvastatin 40 Mg Tab) 80 mg PO [facility] Stop: 02/13/22 10:14 Last Admin: 01/14/22 11:15 Dose: 80 mg Documented by: Clopidogrel Bisulfate (Clopidogrel Bisulfate 75 Mg Tab) 75 mg PO [facility] Stop: 02/14/22 08:59 Heparin Sodium/Dextrose (Heparin Sodium/Dextrose) 25,000 units in 500 mls @ 29 mls/hr IV .[id number] [facility]; Protocol Stop: 02/13/22 02:44 Last Titration: 01/14/22 06:55 Dose: 1,450 units/hr, 29 mls/hr Documented by: Losartan Potassium (Losartan Potassium 50 Mg Tab) 100 mg PO DAILY [facility] Stop: 02/13/22 08:59 Last Admin: 01/14/22 10:19 Dose: 100 mg Documented by: Metoprolol Tartrate (Metoprolol Tartrate 1 Mg/Ml Vial) 5 mg IV Q6 PRN; Protocol PRN Reason: Hypertension Stop: 02/13/22 02:13 Nitroglycerin (Nitroglycerin 2% Ointment 30gm Tube) 0.5 inch EXT Q6H [facility] Stop: 02/13/22 05:59 Last Admin: 01/14/22 14:20 Dose: Not Given Documented by: Nitroglycerin (Nitroglycerin Sl 0.4 Mg/Tab Tab) 0.4 mg SL Q5M PRN PRN Reason: Chest Pain X 3 DOSES Stop: 02/13/22 09:51 Ondansetron HCl (Ondansetron Inj 2 Mg/Ml 2 Ml Vial) 4 mg IV Q6H PRN PRN Reason: Nausea Stop: 02/13/22 02:13 Polyethylene Glycol (Polyethylene (Miralax) 17 Gm Pack) 17 gm PO DAILY PRN PRN Reason: Constipation Stop: 02/13/22 02:13
[2022-01-15] MEDS: HEPARIN SODIUM/DEXTROSE 25,000 UNITS/500 ML BAG IV SCH ×2 (05:15→18:16)
[2022-01-15] MEDS: NITROGLYCERIN 2% OINTMENT 30GM TUBE EXT SCH ×4 (05:20→23:09)
[2022-01-15 07:04] LABS: Basophils # (auto) 0.01 K/uL (0-0.2); Basophils % (auto) 0.2 %; Eosinophils # (auto) 0.09 K/uL (0-0.5); Eosinophils % (auto) 1.6 %; Hematocrit (blood only) 38.9 % (42-52); Hemoglobin 13.3 g/dL (14.0-18.0); Immature Granulocytes # (auto) 0.02 K/uL (0.00-0.02); Immature Granulocytes % (auto) 0.4 %; Lymphocytes # (auto) 1.32 K/uL (1.2-3.4); Lymphocytes % (auto) 23.4 %; Mean Corpuscular Hemoglobin 27.4 pg (25-34); Mean Corpuscular Hgb Conc 34.2 g/dL (32-36); Mean Platelet Volume 9.7 fL (7.4-10.4); Monocytes # (auto) 0.46 K/uL (0.11-0.59); Monocytes % (auto) 8.1 %; Neutrophils # (auto) 3.75 K/uL (1.4-6.5); Neutrophils % (auto) 66.3 %; Platelet Count 188 K/uL (130-400); RDW Coefficient of Variation 12.9 % (11.5-14.5); RDW Standard Deviation 37.3 fL (36.4-46.3); Red Blood Count 4.86 M/uL (4.7-6.1); White Blood Count 5.65 K/uL (4.8-10.8)
[2022-01-15] MEDS: CLOPIDOGREL BISULFATE 75 MG TAB PO SCH (07:21)
[2022-01-15] MEDS: amLODIPine BESYLATE 5 MG TAB PO SCH (07:21)
[2022-01-15] MEDS: LOSARTAN POTASSIUM 50 MG TAB PO SCH (07:22)
[2022-01-15] MEDS: ASPIRIN 81 MG ECTAB PO SCH (07:22)
[2022-01-15] MEDS: ATORVASTATIN 40 MG TAB PO SCH (07:23)
[2022-01-15 07:51] LABS: Partial Thromboplastin Ratio 2.7
[2022-01-15 07:56] LABS: BUN Creatinine Ratio 10.9 (10-20); Calcium 8.8 mg/dl (8.5-10.1); Creatinine Clr Calc Pharmacy 106.1 ml/min; Est GFR (African American) 103.6 ml/min; Est GFR (Non-African American) 89.4 ml/min; Magnesium 1.8 mg/dl (1.7-2.4); Potassium 3.4 mmol/L (3.5-5.1)
[2022-01-15 07:58] LABS: Partial Thromboplastin Time 74.9 Seconds (21.0-31.0)
[2022-01-15] MEDS ORDERED: POTASSIUM CHLORIDE CRTAB 20 MEQ TABCR PO STA (08:21)
--- NOTE | 2022-01-15 09:12 | Cardiology Progress Note ---
Date of Service January 15, 2022 Assessment & Plan (1) Non-ST elevation (NSTEMI) myocardial infarction: (2) Hypertension: Plan: 46-year-old patient presents to the ER with chest discomfort and elevated troponin suggestive of NSTEMI. Patient underwent coronary angiography with the study demonstrating branch vessel coronary artery disease involving left anterior descending diagonal possible acute plaque rupture. Plan: Continue IV heparin for 48 hours. Dual antiplatelet therapy ordered High-dose statin, continue losartan We will add low-dose beta-rafia in hospital with carvedilol 3.125 mg twice per day for optimal medical regimen. Patient has plans for overseas travel on Monday noted I would not recommend Admission and Anticipated Discharge Date Admission Date: January 14, 2022 Subjective Patient seen and examined, chart, medications, telemetry reviewed. Feels well this morning. No chest pain shortness of breath. Right radial access site healing well. Remains on anticoagulation with IV heparin. No bleeding difficulties. Review of Systems Review of Systems: All systems reviewed & are unremarkable except as noted in Subjective Physical Exam Constitutional: well developed and well nourished; no acute distress ENMT: external ear and nose normal, oropharynx normal Neck: trachea midline, no thyromegaly Respiratory: normal respiratory effort, lungs clear to auscultation normal respiratory effort; no respiratory distress and no labored breathing Cardiovascular: RRR, no murmur, no edema Rate/Rhythm: regular rate and regular rhythm Heart Sounds: normal S1 and normal S2; no murmur Vessels: femoral pulses present and radial pulses present (Right radial access site healing); no JVD and no carotid bruit Extremities: no edema Gastrointestinal (Abdomen): Inspection/Auscultation: abdomen normal to inspection and normal bowel sounds; abdomen not distended Musculoskeletal: no cyanosis or clubbing, extremities motor strength 5/5 Neurologic: CN's II-XI intact bilaterally and moves all extremities; no focal motor deficits Psychiatric: A+Ox3, euthymic affect Results & Data ([place]) Vital Signs (Past 12 Hours) Vital Signs Temp Pulse Pulse Resp BP BP Pulse Ox 01/15/22 08:00 59 L 01/15/22 07:16 36.8 C 63 19 147/77 H 97 01/15/22 05:18 136/83 01/15/22 03:57 36.5 C 67 18 145/84 H 97 01/14/22 22:57 36.4 C L 59 L 69 18 145/88 H 97 Laboratory Results Laboratory Results - last 24 hr 01/14/22 01/14/22 01/14/22 08:09 08:09 11:39 WBC RBC Hgb Hct MCV MCH MCHC RDW Std Deviation RDW Coeff of Storm Plt Count MPV Immature Gran % (Auto) Neut % (Auto) Lymph % (Auto) [place] % (Auto) Eos % (Auto) Baso % (Auto) Neut # (Auto) Lymph # (Auto) [place] # (Auto) Eos # (Auto) Baso # (Auto) Immature Gran # (Auto) APTT 64.1 H* PTT Ratio 2.3 Sodium 140 Potassium 3.6 Chloride 108 H Carbon Dioxide 27 Anion Gap 5 BUN 11 Creatinine 0.99 Est Cr Clr Drug Dosing 107.0 Est GFR ( Amer) 106.2 Est GFR (Non-Af Amer) 91.6 BUN/Creatinine Ratio 11.1 Glucose 111 H Estimat Average Glucose 111 Hemoglobin A1c 5.5 Calcium 8.6 Magnesium 2.0 Troponin I High Sens 120.9 H* D Triglycerides 98 Cholesterol 143 LDL Cholesterol, Calc 86 VLDL Cholesterol, Calc 20 HDL Cholesterol 37 Cholesterol/HDL Ratio 3.9 01/14/22 01/14/22 01/14/22 12:44 13:52 19:16 WBC RBC Hgb Hct MCV MCH MCHC RDW Std Deviation RDW Coeff of Storm Plt Count MPV Immature Gran % (Auto) Neut % (Auto) Lymph % (Auto) [place] % (Auto) Eos % (Auto) Baso % (Auto) Neut # (Auto) Lymph # (Auto) [place] # (Auto) Eos # (Auto) Baso # (Auto) Immature Gran # (Auto) APTT 27.9 PTT Ratio 1.0 Sodium Potassium Chloride Carbon Dioxide Anion Gap BUN Creatinine Est Cr Clr Drug Dosing Est GFR ( Amer) Est GFR (Non-Af Amer) BUN/Creatinine Ratio Glucose Estimat Average Glucose Hemoglobin A1c Calcium Magnesium Troponin I High Sens 86.7 H* D 116.8 H* D Triglycerides Cholesterol LDL Cholesterol, Calc VLDL Cholesterol, Calc HDL Cholesterol Cholesterol/HDL Ratio 01/14/22 01/15/22 01/15/22 21:50 06:31 06:31 WBC 5.65 RBC 4.86 Hgb 13.3 L Hct 38.9 L MCV 80.0 MCH 27.4 MCHC 34.2 RDW Std Deviation 37.3 RDW Coeff of Storm 12.9 Plt Count 188 MPV 9.7 Immature Gran % (Auto) 0.4 Neut % (Auto) 66.3 Lymph % (Auto) 23.4 [place] % (Auto) 8.1 Eos % (Auto) 1.6 Baso % (Auto) 0.2 Neut # (Auto) 3.75 Lymph # (Auto) 1.32 [place] # (Auto) 0.46 Eos # (Auto) 0.09 Baso # (Auto) 0.01 Immature Gran # (Auto) 0.02 APTT 109.0 H* PTT Ratio 4.0 Sodium 139 Potassium 3.4 L Chloride 105 Carbon Dioxide 29 Anion Gap 5 BUN 11 Creatinine 1.01 Est Cr Clr Drug Dosing 106.1 Est GFR ( Amer) 103.6 Est GFR (Non-Af Amer) 89.4 BUN/Creatinine Ratio 10.9 Glucose 114 H Estimat Average Glucose Hemoglobin A1c Calcium 8.8 Magnesium 1.8 Troponin I High Sens Triglycerides Cholesterol LDL Cholesterol, Calc VLDL Cholesterol, Calc HDL Cholesterol Cholesterol/HDL Ratio 01/15/22 06:31 WBC RBC Hgb Hct MCV MCH MCHC RDW Std Deviation RDW Coeff of Storm Plt Count MPV Immature Gran % (Auto) Neut % (Auto) Lymph % (Auto) [place] % (Auto) Eos % (Auto) Baso % (Auto) Neut # (Auto) Lymph # (Auto) [place] # (Auto) Eos # (Auto) Baso # (Auto) Immature Gran # (Auto) APTT 74.9 H* PTT Ratio 2.7 Sodium Potassium Chloride Carbon Dioxide Anion Gap BUN Creatinine Est Cr Clr Drug Dosing Est GFR ( Amer) Est GFR (Non-Af Amer) BUN/Creatinine Ratio Glucose Estimat Average Glucose Hemoglobin A1c Calcium Magnesium Troponin I High Sens Triglycerides Cholesterol LDL Cholesterol, Calc VLDL Cholesterol, Calc HDL Cholesterol Cholesterol/HDL Ratio
[2022-01-15] MEDS: carvediloL 3.125 MG TAB PO SCH ×2 (10:10→20:23)
[2022-01-15 14:50] LABS: Partial Thromboplastin Ratio 1.9
[2022-01-15 14:53] LABS: Partial Thromboplastin Time 51.4 Seconds (21.0-31.0)
--- NOTE | 2022-01-15 16:19 | Hospitalist Progress Note ---
Date of Service January 15, 2022 Assessment & Plan (1) Non-ST elevation (NSTEMI) myocardial infarction: Plan: Presented with chest pain on exertion History of hypertension, prediabetes Noted to have increasing level of troponins without any significant EKG changes Status post cardiac cath and noted to have:99% distal diagonal branch vessel stenosis not amenable to PCI due to small caliber vessel. Otherwise, mild nonobstructive CAD. Recommendations: Medical Therapy and/or Counseling (48 hours of intravenous heparin, dual antiplatelet therapy for 1 year, high intensity statin therapy, beta-rafia if tolerated) Remains free of symptoms following cardiac cath Likely home following completion of 48 hours of intravenous heparin Remains stable without any cardiac symptoms Low-dose beta-rafia has been started with carvedilol 3.125 mg twice daily Discharge home tomorrow (2) Hypertension: Plan: Noted to have high blood pressure on admission Remains stable as of this morning DVT prophylaxis Intravenous heparin CODE STATUS Full Admission and Anticipated Discharge Date Admission Date: January 14, 2022 Subjective 01/14/2022 The patient was seen and examined in telemetry unit Is admitted with chest pain and was noted to have increasing level of troponin He underwent cardiac cath and noted to have small vessel occlusion with normal coronaries Clinically stable with continuation of the medical management as per the copper flotation operator Denies any significant symptoms today 01/15/2022 The patient was seen and examined in telemetry unit He has been stable without any symptoms at rest He has been moving around in the room without any symptoms Review of Systems Review of Systems: All systems reviewed and are unremarkable except as noted below Cardiovascular: Additional Comments: No chest pain Physical Exam Physical Exam: Lying in bed comfortably Constitutional: well developed, well nourished and + obese; not ill appearing Eyes: PERRL, conjunctivae normal, anicteric sclerae ENMT: external ear and nose normal, oropharynx normal Neck: trachea midline, no thyromegaly Respiratory: no respiratory distress Auscultation: lungs clear to auscultation bilaterally and + diminished lung sounds Cardiovascular: Rate/Rhythm: regular rate and regular rhythm; not tachycardic Heart Sounds: normal S1 and normal S2; no murmur Extremities: no edema Gastrointestinal (Abdomen): Inspection/Auscultation: normal bowel sounds; abdomen not distended Percussion/Palpation: + splenomegaly; abdomen nontender Musculoskeletal: No acute arthritis involving any joint Neurologic: PERRL, EOMI, accommodation nl, no face palsy, no dysarthria Psychiatric: A+Ox3, euthymic affect Lymphatic: no cervical or axillary lymphadenopathy Results & Data Results & Data ([facility]) Vital Signs (Past 12 Hours) Vital Signs Temp Pulse Pulse Resp BP BP Pulse Ox 01/15/22 15:22 36.7 C 71 19 134/76 95 01/15/22 14:15 70 01/15/22 11:01 37.2 C 77 20 137/81 96 01/15/22 10:10 74 01/15/22 08:00 59 L 01/15/22 07:16 36.8 C 63 19 147/77 H 97 01/15/22 05:18 136/83 Laboratory Results Short CBC 01/15/22 Range/Units 06:31 WBC 5.65 (4.8-10.8) K/uL Hgb 13.3 L (14.0-18.0) g/dL Hct 38.9 L (42-52) % Plt Count 188 (130-400) K/uL BMP 01/15/22 06:31 Sodium 139 Potassium 3.4 L Chloride 105 Carbon Dioxide 29 BUN 11 Creatinine 1.01 Glucose 114 H Calcium 8.8 Medications Administered Current Inpatient Medications Acetaminophen (Acetaminophen 325 Mg Tab) 650 mg PO Q4H PRN PRN Reason: Pain or Fever Stop: 02/13/22 02:13 Amlodipine Besylate (Amlodipine Besylate 5 Mg Tab) 5 mg PO DAILY [facility] Stop: 02/13/22 08:59 Last Admin: 01/15/22 07:21 Dose: 5 mg Documented by: Aspirin (Aspirin 81 Mg Ectab) 81 mg PO QAM [facility] Stop: 02/13/22 08:59 Last Admin: 01/15/22 07:22 Dose: 81 mg Documented by: Atorvastatin Calcium (Atorvastatin 40 Mg Tab) 80 mg PO QAM [facility] Stop: 02/13/22 10:14 Last Admin: 01/15/22 07:23 Dose: 80 mg Documented by: Carvedilol (Carvedilol 3.125 Mg Tab) 3.125 mg PO BID [facility] Stop: 02/14/22 09:29 Last Admin: 01/15/22 10:10 Dose: 3.125 mg Documented by: Clopidogrel Bisulfate (Clopidogrel Bisulfate 75 Mg Tab) 75 mg PO QAM [facility] Stop: 02/14/22 08:59 Last Admin: 01/15/22 07:21 Dose: 75 mg Documented by: Heparin Sodium/Dextrose (Heparin Sodium/Dextrose) 25,000 units in 500 mls @ 22 mls/hr IV .[id number] [facility]; Protocol Stop: 02/13/22 02:44 Last Titration: 01/15/22 08:51 Dose: 1,100 units/hr, 22 mls/hr Documented by: Losartan Potassium (Losartan Potassium 50 Mg Tab) 100 mg PO DAILY [facility] Stop: 02/13/22 08:59 Last Admin: 01/15/22 07:22 Dose: 100 mg Documented by: Metoprolol Tartrate (Metoprolol Tartrate 1 Mg/Ml Vial) 5 mg IV Q6 PRN; Protocol PRN Reason: Hypertension Stop: 02/13/22 02:13 Nitroglycerin (Nitroglycerin 2% Ointment 30gm Tube) 0.5 inch EXT Q6H [facility] Stop: 02/13/22 05:59 Last Admin: 01/15/22 11:53 Dose: 0.5 inch Documented by: Nitroglycerin (Nitroglycerin Sl 0.4 Mg/Tab Tab) 0.4 mg SL Q5M PRN PRN Reason: Chest Pain X 3 DOSES Stop: 02/13/22 09:51 Ondansetron HCl (Ondansetron Inj 2 Mg/Ml 2 Ml Vial) 4 mg IV Q6H PRN PRN Reason: Nausea Stop: 02/13/22 02:13 Polyethylene Glycol (Polyethylene (Miralax) 17 Gm Pack) 17 gm PO DAILY PRN PRN Reason: Constipation Stop: 02/13/22 02:13
[2022-01-15 20:33] LABS: Partial Thromboplastin Ratio 1.8
[2022-01-15 21:45] LABS: Partial Thromboplastin Time 49.5 Seconds (21.0-31.0)
[2022-01-16] MEDS: HEPARIN SODIUM/DEXTROSE 25,000 UNITS/500 ML BAG IV SCH (03:23)
[2022-01-16] MEDS: NITROGLYCERIN 2% OINTMENT 30GM TUBE EXT SCH (05:54)
[2022-01-16 08:00] LABS: Partial Thromboplastin Ratio 2.1
[2022-01-16 08:03] LABS: Partial Thromboplastin Time 57.5 Seconds (21.0-31.0)
[2022-01-16 08:07] LABS: BUN Creatinine Ratio 8.2 (10-20); Calcium 8.9 mg/dl (8.5-10.1); Creatinine Clr Calc Pharmacy 87.8 ml/min; Est GFR (African American) 82.5 ml/min; Est GFR (Non-African American) 71.2 ml/min; Potassium 3.5 mmol/L (3.5-5.1)
[2022-01-16] MEDS ORDERED: POTASSIUM CHLORIDE CRTAB 20 MEQ TABCR PO STA (08:34)
[2022-01-16] MEDS: carvediloL 3.125 MG TAB PO SCH (08:51)
[2022-01-16] MEDS: ASPIRIN 81 MG ECTAB PO SCH (08:52)
[2022-01-16] MEDS: ATORVASTATIN 40 MG TAB PO SCH (08:52)
[2022-01-16] MEDS: amLODIPine BESYLATE 5 MG TAB PO SCH (08:52)
[2022-01-16] MEDS: LOSARTAN POTASSIUM 50 MG TAB PO SCH (08:52)
[2022-01-16] MEDS: CLOPIDOGREL BISULFATE 75 MG TAB PO SCH (08:52)
--- NOTE | 2022-01-16 10:58 | Cardiology Progress Note ---
Date of Service January 16, 2022 Assessment & Plan (1) Non-ST elevation (NSTEMI) myocardial infarction: (2) Hypertension: Plan: 46-year-old patient presents to the ER with chest discomfort and elevated troponin suggestive of NSTEMI. Patient underwent coronary angiography with the study demonstrating branch vessel coronary artery disease involving left anterior descending diagonal possible acute plaque rupture. Patient has plans for overseas travel on Monday noted I would not recommend Impression: Non-ST segment elevation myocardial infarction with branch vessel coronary artery disease Plan: Discontinue IV heparin, ambulate in hallway Continue current medications as ordered including carvedilol 3.125 mg twice per day, dual antiplatelet therapy with clopidogrel and aspirin, high-dose statin with atorvastatin and losartan. Needs appointment with cardiology 1 to 2-week Would supplement potassium with 10 mg/day patient in the past recommended to undergo urinary testing for hyperaldosteronism with study not completed. Patient should follow-up with PCP/nephrology given persistent hypokalemia and hypertension May be discharged home today if stable with ambulation Admission and Anticipated Discharge Date Admission Date: January 14, 2022 Subjective Patient seen and examined, chart, medications, telemetry reviewed No chest pain or cardiac complaints. No dizziness or lightheadedness. Tolerating current medical therapies including low-dose beta-rafia. No bleeding difficulties. Review of Systems Review of Systems: All systems reviewed & are unremarkable except as noted in Subjective Physical Exam Constitutional: well developed and well nourished; no acute distress ENMT: external ear and nose normal, oropharynx normal Neck: trachea midline, no thyromegaly Respiratory: normal respiratory effort, lungs clear to auscultation normal respiratory effort; no respiratory distress and no labored breathing Cardiovascular: RRR, no murmur, no edema Rate/Rhythm: regular rate and regular rhythm Heart Sounds: normal S1 and normal S2; no murmur Vessels: femoral pulses present and radial pulses present (Right radial access site healing); no JVD and no carotid bruit Extremities: no edema Gastrointestinal (Abdomen): Inspection/Auscultation: abdomen normal to in spection and normal bowel sounds; abdomen not distended Musculoskeletal: no cyanosis or clubbing, extremities motor strength 5/5 Neurologic: CN's II-XI intact bilaterally and moves all extremities; no focal motor deficits Psychiatric: A+Ox3, euthymic affect Results & Data ([place]) Vital Signs (Past 12 Hours) Vital Signs Temp Pulse Pulse Resp BP Pulse Ox 01/16/22 08:00 56 L 01/16/22 07:56 36.5 C 72 20 147/87 H 95 01/16/22 03:30 36.6 C 63 16 132/74 97 01/16/22 00:00 65 01/15/22 23:33 36.9 C 79 18 151/82 H 97 Laboratory Results Laboratory Results - last 24 hr 01/15/22 01/15/22 01/16/22 14:00 19:57 06:48 APTT 51.4 H* 49.5 H* PTT Ratio 1.9 1.8 Sodium 142 Potassium 3.5 Chloride 107 Carbon Dioxide 28 Anion Gap 7 BUN 10 Creatinine 1.22 Est Cr Clr Drug Dosing 87.8 Est GFR ( Amer) 82.5 Est GFR (Non-Af Amer) 71.2 BUN/Creatinine Ratio 8.2 L Glucose 105 H Calcium 8.9 01/16/22 06:48 APTT 57.5 H* PTT Ratio 2.1 Sodium Potassium Chloride Carbon Dioxide Anion Gap BUN Creatinine Est Cr Clr Drug Dosing Est GFR ( Amer) Est GFR (Non-Af Amer) BUN/Creatinine Ratio Glucose Calcium
[2022-01-16] MEDS ORDERED: POTASSIUM CHLORIDE 10 MEQ TABCR PO SCH (11:15)
--- NOTE | 2022-01-16 13:36 | Hospitalist Progress Note ---
Date of Service January 16, 2022 Assessment & Plan (1) Non-ST elevation (NSTEMI) myocardial infarction: Plan: Presented with chest pain on exertion History of hypertension, prediabetes Noted to have increasing level of troponins without any significant EKG changes Status post cardiac cath and noted to have:99% distal diagonal branch vessel stenosis not amenable to PCI due to small caliber vessel. Otherwise, mild nonobstructive CAD. Recommendations: Medical Therapy and/or Counseling (48 hours of intravenous heparin, dual antiplatelet therapy for 1 year, high intensity statin therapy, beta-rafia if tolerated) Remains free of symptoms following cardiac cath Likely home following completion of 48 hours of intravenous heparin Remains stable without any cardiac symptoms Low-dose beta-rafia has been started with carvedilol 3.125 mg twice daily Remains medically stable without any cardiac symptoms Did well with ambulation in the hallway without any cardiac symptoms and no shortness of breath Will be discharged home this afternoon (2) Hypertension: Plan: Noted to have high blood pressure on admission Remains stable as of this morning Blood pressure remains reasonably controlled DVT prophylaxis Intravenous heparin IV heparin will be discontinued CODE STATUS Full Admission and Anticipated Discharge Date Admission Date: January 14, 2022 Subjective 01/14/2022 The patient was seen and examined in telemetry unit Is admitted with chest pain and was noted to have increasing level of troponin He underwent cardiac cath and noted to have small vessel occlusion with normal coronaries Clinically stable with continuation of the medical management as per the french tutor Denies any significant symptoms today 01/15/2022 The patient was seen and examined in telemetry unit He has been stable without any symptoms at rest He has been moving around in the room without any symptoms 01/16/2022 The patient was seen and examined in telemetry unit He has been stable without any symptoms He has had ambulation in the hallway without any symptoms Will be discharged home this afternoon Review of Systems Review of Systems: All systems reviewed and are unremarkable except as noted below Cardiovascular: Additional Comments: No chest pain Physical Exam Physical Exam: Lying in bed comfortably Constitutional: well developed, well nourished and + obese; not ill appearing Eyes: PERRL, conjunctivae normal, anicteric sclerae ENMT: external ear and nose normal, oropharynx normal Neck: trachea midline, no thyromegaly Respiratory: no respiratory distress Auscultation: lungs clear to auscultation bilaterally and + diminished lung sounds Cardiovascular: Rate/Rhythm: regular rate and regular rhythm; not tachycardic Heart Sounds: normal S1 and normal S2; no murmur Extremities: no edema Gastrointestinal (Abdomen): Inspection/Auscultation: normal bowel sounds; abdomen not distended Percussion/Palpation: + splenomegaly; abdomen nontender Neurologic: PERRL, EOMI, accommodation nl, no face palsy, no dysarthria Psychiatric: A+Ox3, euthymic affect Lymphatic: no cervical or axillary lymphadenopathy Results & Data Results & Data ([facility]) Vital Signs (Past 12 Hours) Vital Signs Temp Pulse Pulse Pulse Resp BP BP 01/16/22 12:47 37.0 C 65 63 19 147/77 H 117/60 01/16/22 12:16 37.0 C 63 19 117/60 01/16/22 08:00 56 L 01/16/22 07:56 36.5 C 72 20 147/87 H 01/16/22 03:30 36.6 C 63 16 132/74 Pulse Ox 01/16/22 12:47 96 01/16/22 12:16 96 01/16/22 08:00 01/16/22 07:56 95 01/16/22 03:30 97 Laboratory Results BMP 01/16/22 06:48 Sodium 142 Potassium 3.5 Chloride 107 Carbon Dioxide 28 BUN 10 Creatinine 1.22 Glucose 105 H Calcium 8.9 Medications Administered Current Inpatient Medications Acetaminophen (Acetaminophen 325 Mg Tab) 650 mg PO Q4H PRN PRN Reason: Pain or Fever Stop: 02/13/22 02:13 Amlodipine Besylate (Amlodipine Besylate 5 Mg Tab) 5 mg PO DAILY [facility] Stop: 02/13/22 08:59 Last Admin: 01/16/22 08:52 Dose: 5 mg Documented by: Aspirin (Aspirin 81 Mg Ectab) [facility] [place]: 02/13/22 08:59 Last Admin: 01/16/22 08:52 Dose: 81 mg Documented by: Atorvastatin Calcium (Atorvastatin 40 Mg Tab) 80 mg PO QAM [facility] Stop: 02/13/22 10:14 Last Admin: 01/16/22 08:52 Dose: 80 mg Documented by: Carvedilol (Carvedilol 3.125 Mg Tab) 3.125 mg PO BID [facility] Stop: 02/14/22 09:29 Last Admin: 01/16/22 08:51 Dose: 3.125 mg Documented by: Clopidogrel Bisulfate (Clopidogrel Bisulfate 75 Mg Tab) 75 mg PO QAM [facility] Stop: 02/14/22 08:59 Last Admin: 01/16/22 08:52 Dose: 75 mg Documented by: Losartan Potassium (Losartan Potassium 50 Mg Tab) 100 mg PO DAILY [facility] Stop: 02/13/22 08:59 Last Admin: 01/16/22 08:52 Dose: 100 mg Documented by: Metoprolol Tartrate (Metoprolol Tartrate 1 Mg/Ml Vial) 5 mg IV Q6 PRN; Protocol PRN Reason: Hypertension Stop: 02/13/22 02:13 Nitroglycerin (Nitroglycerin Sl 0.4 Mg/Tab Tab) 0.4 mg SL Q5M PRN PRN Reason: Chest Pain X 3 DOSES Stop: 02/13/22 09:51 Ondansetron HCl (Ondansetron Inj 2 Mg/Ml 2 Ml Vial) 4 mg IV Q6H PRN PRN Reason: Nausea Stop: 02/13/22 02:13 Polyethylene Glycol (Polyethylene (Miralax) 17 Gm Pack) 17 gm PO DAILY PRN PRN Reason: Constipation Stop: 02/13/22 02:13 Potassium Chloride (Potassium Chloride 10 Meq Tabcr) 10 meq PO DAILY [facility] Stop: 02/15/22 11:14 Last Admin: 01/16/22 11:22 Dose: Not Given Documented by:
--- NOTE | 2022-01-17 06:17 | Electrocardiogram Report ---
Test Reason : Blood Pressure : / mmHG Vent. Rate : 060 BPM Atrial Rate : 060 BPM P-R Int : 168 ms QRS Dur : 108 ms QT Int : 462 ms P-R-T Axes : 053 -11 032 degrees QTc Int : 462 ms Normal sinus rhythm Incomplete right bundle branch block Borderline ECG When compared with ECG of 14-JAN-2022 06:10, No significant change was found Confirmed by Roni Fraire ([id number]) on 01/17/2022 6:17:45 AM Referred By: REFERRED SELF Confirmed By:Roni Fraire
--- NOTE | 2022-01-17 06:58 | Electrocardiogram Report ---
Test Reason : Blood Pressure : / mmHG Vent. Rate : 060 BPM Atrial Rate : 060 BPM P-R Int : 170 ms QRS Dur : 102 ms QT Int : 432 ms P-R-T Axes : 059 -02 055 degrees QTc Int : 432 ms Normal sinus rhythm Incomplete right bundle branch block Nonspecific T wave abnormality Abnormal ECG When compared with ECG of 15-JAN-2022 05:59, (unconfirmed) No significant change was found Confirmed by Roni Fraire ([id number]) on 01/17/2022 6:58:15 AM Referred By: REFERRED SELF Confirmed By:Roni Fraire
--- NOTE | 2022-01-17 08:04 | Discharge Summary ---
Date of Service January 17, 2022 Admission HPI Per Admitting Provider DICTATED BY:Arden Camargo MD DATE OF ADMISSION: 01/14/2022. CHIEF COMPLAINT: Chest pain. HISTORY OF PRESENT ILLNESS: A 46-year-old male with past medical history significant for prediabetes, history of hypokalemia, hypertension, history of low HDL, presents with chest pain. The patient says he flew from [place] yesterday morning. Since then, he is having chest discomfort in the middle of the chest, no radiation. Pressure, sharp kind of pain and the pain is more when he is ambulating 6/10 in ; when he is resting, it is 3/10 in severity. Denies any other complaints. No shortness of breath, no nausea, no headache, no dizziness, no sweating. Currently resting comfortably. The patient was given nitros and aspirin in the ER. Currently, pain is resolved. Denies any blurred visions, no earache, no runny nose, no sore throat, no cough, no fevers. No difficulty swallowing. No abdominal pain. Normal bowel and bladder movements. Before this episode he was ambulating fine without any complaints. Admission Exam Per Admitting Provider GENERAL: The patient is of moderate build, not in acute distress. VITAL SIGNS: Temperature 36.4, pulse 84, respiratory rate 18, blood pressure 174/106, oxygen 95% on room air. HEENT: Pupils equal, round and reactive to light. Oral mucosa moist. NECK: No JVD, no neck masses. CARDIOVASCULAR: S1 and S2 heard. Regular rate and rhythm. No murmur, no gallop. RESPIRATORY SYSTEM: Normal AP diameter. No accessory muscle use. No wheezing, no crackles. ABDOMEN: Soft, bowel sounds present, nontender, no distention. CENTRAL NERVOUS SYSTEM: Cranial nerves II-XII grossly intact, nonfocal. EXTREMITIES: No edema, no erythema. Principal Diagnosis None ST GERTRUDIS, hypertension Discharge Exam Lying in bed comfortably Constitutional well developed, well nourished and + obese; not ill appearing Eyes PERRL, conjunctivae normal, anicteric sclerae ENMT external ear and nose normal, oropharynx normal Neck trachea midline, no thyromegaly Respiratory no respiratory distress Auscultation: lungs clear to auscultation bilaterally and + diminished lung sounds Cardiovascular Rate/Rhythm: regular rate and regular rhythm; not tachycardic Heart Sounds: normal S1 and normal S2; no murmur Extremities: no edema Gastrointestinal (Abdomen) Inspection/Auscultation: normal bowel sounds; abdomen not distended Percussion/Palpation: + splenomegaly; abdomen nontender Neurologic PERRL, EOMI, accommodation nl, no face palsy, no dysarthria Psychiatric A+Ox3, euthymic affect Lymphatic no cervical or axillary lymphadenopathy Discharge Data Allergies Allergy/AdvReac Type Severity Reaction Status Date / Time No Known Allergies Allergy Verified 01/13/22 23:38 Consultations 01/13/22 23:43 ED Decision to Admit Stat 01/14/22 08:00 Consult Cardiology Routine Procedures Performed Operation Date: 01/14/22 08:30 Actual Procedures p Cineradiography w/Routine Exam - Fam Arechiga DO p Cath, Left with Cors and Vent - Fam Arechiga DO Ordered Studies 01/14/22 08:04 CL Cath Imgs for PACS use only Routine Hospital Course (1) Non-ST elevation (NSTEMI) myocardial infarction: Presented with chest pain on exertion History of hypertension, prediabetes Noted to have increasing level of troponins without any significant EKG changes Status post cardiac cath and noted to have:99% distal diagonal branch vessel stenosis not amenable to PCI due to small caliber vessel. Otherwise, mild nonobstructive CAD. Recommendations: Medical Therapy and/or Counseling (48 hours of intravenous heparin, dual antiplatelet therapy for 1 year, high intensity statin therapy, beta-rafia if tolerated) Remains free of symptoms following cardiac cath Likely home following completion of 48 hours of intravenous heparin Remains stable without any cardiac symptoms Low-dose beta-rafia has been started with carvedilol 3.125 mg twice daily Remains medically stable without any cardiac symptoms Did well with ambulation in the hallway without any cardiac symptoms and no shortness of breath Will be discharged home this afternoon (2) Hypertension: Noted to have high blood pressure on admission Remains stable as of this morning Blood pressure remains reasonably controlled DVT prophylaxis Intravenous heparin IV heparin will be discontinued CODE STATUS Full Total Time Total Time Spent Total Time Spent (In Minutes): 35 minutes Discharge Plan Discharge Items Patient Disposition: Home - Self-Care Reason For Visit: CHEST PAIN Discharge Diagnosis: None ST GERTRUDIS, hypertension Condition on Discharge: Fair Activity: As commented below Activity Comment: Take it easy for the next few weeks Non-emergency contact: Primary Care Provider Call non-emergency contact if: you have any medication questions and your symptoms worsen Follow-up/Referrals: PCP,NO [Primary Care Provider] - (Your doctor's office will call you with an appointment within 7 days) Diet: Heart Healthy Addtl Attending Provider Instructions: Please do not overexert Take your medications as advised Keep appointments with your healthcare providers Pending Studies at Discharge: No Stand-Alone Forms: My [facility], Smoking Cessation Medications and DC Order Prescriptions: New atorvastatin 40 mg Tablet 80 mg PO QAM 30 Days Qty: 60 RF: 0 clopidogrel 75 mg Tablet 75 mg PO QAM Qty: 30 RF: 0 aspirin 81 mg Tablet,Delayed Release (Dr/Ec) 81 mg PO QAM 30 Days Qty: 30 RF: 0 carvedilol 3.125 mg Tablet 3.125 mg PO BID 30 Days Qty: 60 RF: 0 potassium chloride 10 mEq Tablet,Er Particles/Crystals 10 meq PO DAILY 30 Days Qty: 30 RF: 0 Continued losartan 100 mg tablet 100 mg PO DAILY RF: 0 amlodipine 5 mg tablet 5 mg PO DAILY RF: 0 Discharge Orders: Discharge Order (Routine); Ordered 01/16/22 Ordered By: Patrica Mensah/Other Patient Handouts: Coreg Oral Tablet 3.125 mg, Aspirin Oral Tablet 81 mg, Atorvastatin Oral Tablet 40 mg, Plavix Oral Tablet 75 mg, ED Cardiac Cath Post Bleed Admission Data Admit Date/Time: 01/14/22 01:29 Attending Provider: Patrica Hall Admit Provider: Arden Camargo Primary Care Provider: PCP,NO Other Providers: Arden Camargo ; Christophe Hassan ; Clint Pollock ; Andrey Castro ; Fam Arechiga ; Chad Javier ; Armaan Segura ; Karen Vazquez ; Emily Orozco ; Merry Blanco ; Brayden Krishnamurthy ; Trae Strickland Other Interventions: Discharge Summary Assessment (RN) Last Done: 01/16/22 12:47
== END 2022-01-16 15:18 | disposition home or self-care (01) | DRG 282 ==
LOC: ED 21:58 → 2S 01-14 01:29 → SUATTDRO 01-14 01:29 → 2S 01-14 02:30